=== PATIENT | female | born 1970 | race Caucasian/White ===

== ENCOUNTER → 2018-07-08 11:11 | Outpatient (CLI) | payer OTHER, SELFPAY ==
--- NOTE | 2018-07-08 | DI.RAD.S_ITS ---
PROCEDURE: XR CERVICAL SPINE 2V OR 3V INDICATIONS: RADICULOPATHY TECHNIQUE: 3 view(s) of the cervical spine were acquired. COMPARISON: None. FINDINGS: Bones: No fractures or dislocations to the C7-T1 level. The lateral masses of C1 appear intact on the odontoid view. No suspicious bony lesions. There is compression deformity at C5 measuring approximately 35%. There is significant displaced narrowing at C5-6 and moderate at C4-5. Soft tissues: No prevertebral soft tissue swelling. IMPRESSION: Compression deformity of indeterminate age as above. Degenerative changes are most prominent at C4-5 and C5-6. MRI may be obtained as clinically indicated for further evaluation. Dictated by: Nya Krishnan M.D. on 07/08/2018 at 14:42 Approved by: Nya Krishnan M.D. on 07/08/2018 at 14:43
== END ==
PROVIDERS: PCP Family Medicine; Visit Provider Family Medicine
DX: M54.12 Radiculopathy, cervical region (principal); M48.02 Spinal stenosis, cervical region
CPT/HCPCS: 72040